=== PATIENT | male | born 1990 | race Caucasian/White ===

== ENCOUNTER 2016-12-29 12:36 | Emergency (ER) | payer OTHER ==
[~2016-12-29] VITALS: Ht 180.3 cm; Wt 98.8 kg
[~2016-12-29 12:36] MED LIST: ABILIFY10 MG PO; ABILIFY15 MG PO; AMBIEN CR12.5 MG PO; AMBIEN5 MG PO; ATARAX,VISTARIL50 MG PO; Atarax,Vistaril PO; BRINTELLIX10 MG PO; DESYREL100 MG PO; DEXTROAMP-AMPHE20 MG PO; Desyrel PO; FLEXERIL10 MG PO; KLONOPIN0.5 M1; KLONOPIN0.5 M1 PO; LAMICTAL100 MG PO; LEXAPRO10 MG PO; LUNESTA3 MG PO; MOBIC15 MG PO; MOTRIN800 MG PO; NAPROSYN500 MG PO; RISPERDAL1 MG PO; SEROQUEL100 MG PO; SEROQUEL50 MG PO; WELLBUTRIN XL300 MG PO; XANAX2 MG PO
[2016-12-29] MEDS ORDERED: INDOCIN50 MG PO (13:21)
[2016-12-29] MEDS ORDERED: PEN-VEE K,VEET500 MG PO (13:21)
[2016-12-29 13:32] VITALS: BP 135/80
== END 2016-12-29 13:32 | disposition home or self-care (01) ==
LOC: EME 12:36
DX: K08.89 Other specified disorders of teeth and supporting structures (principal); R22.0 Localized swelling, mass and lump, head; R51 Headache; F17.200 Nicotine dependence, unspecified, uncomplicated
CPT/HCPCS: 99281; 99284; J1885

== ENCOUNTER 2017-01-12 23:58 | Emergency (ER) | payer OTHER ==
[~2017-01-12] VITALS: Ht 177.8 cm; Wt 96.8 kg
[~2017-01-12 23:58] MED LIST changes: +INDOCIN50 MG PO; +PEN-VEE K,VEET500 MG PO
[2017-01-13 00:34] LABS: HEMATOCRIT 42.6 % (38.0-50.0); MCH 30.2 PG (29.0-34.0); MCHC 33.8 G/DL (30.0-36.0); MCV 89.3 FL (86-99); MEAN PLAT.VOLUME 9.5 uM^3 (9.0-12.4); PLATELET COUNT 223 K/uL (156-360); RBC DIS.WIDTH-CV 13.3 % (11.8-14.6); RBC DIS.WIDTH-SD 44.2 % (39-53); RED BLOOD COUNT 4.77 M/uL (4.00-5.50); WHITE BLOOD COUNT 11.8 K/uL (4.1-10.2)
[2017-01-13] MEDS ORDERED: AUGMENTIN875 MG PO (00:37)
[2017-01-13 00:44] LABS: CHLORIDE 105 mEq/L (99-109); POTASSIUM 3.9 mEq/L (3.7-5.4); SODIUM 141 mEq/L (136-147)
[2017-01-13 00:45] LABS: GLUCOSE 102 mg/dL (70-99)
[2017-01-13 00:47] LABS: ANION GAP 11 MEQ/L (2-14)
[2017-01-13 00:49] LABS: GFR ESTIMATE (CALCULATED) > 59 mL/min/
[2017-01-13 00:50] LABS: UREA NITROGEN (BUN) 16 mg/dL (9-23)
[2017-01-13 01:02] LABS: TROP-I INTERPRETATION NEGATIVE; TROPONIN-I < 0.01 ng/mL (0.0-0.30)
[2017-01-13 01:34] VITALS: BP 108/72
== END 2017-01-13 01:40 | disposition home or self-care (01) ==
LOC: EME 23:58
PROC: 3E0T3BZ Introduction of Anesthetic Agent into Peripheral Nerves and Plexi, Percutaneous Approach (ICD-10-PCS; principal; 2017-01-13)
DX: K04.7 Periapical abscess without sinus (principal); K05.10 Chronic gingivitis, plaque induced; R07.89 Other chest pain; R51 Headache; M54.2 Cervicalgia; G43.909 Migraine, unspecified, not intractable, without status migrainosus; F17.200 Nicotine dependence, unspecified, uncomplicated; M26.622 Arthralgia of left temporomandibular joint
CPT/HCPCS: 71020; 80048; 84484; 85027; 93005; 99281; 99283

== ENCOUNTER 2017-06-01 10:22 | Emergency (ER) | payer OTHER ==
[~2017-06-01] VITALS: Ht 180.3 cm; Wt 96.1 kg
[~2017-06-01 10:22] MED LIST changes: +AUGMENTIN875 MG PO
[2017-06-01 12:21] LABS: HEMATOCRIT 44.6 % (38.0-50.0); MCHC 34.1 G/DL (30.0-36.0); MEAN PLAT.VOLUME 9.8 uM^3 (9.0-12.4); PLATELET COUNT 215 K/uL (156-360); RBC DIS.WIDTH-CV 13.2 % (11.8-14.6); RBC DIS.WIDTH-SD 44.5 % (39-53); WHITE BLOOD COUNT 9.2 K/uL (4.1-10.2)
[2017-06-01 12:34] LABS: CHLORIDE 103 mEq/L (99-109); POTASSIUM 4.2 mEq/L (3.7-5.4); SODIUM 141 mEq/L (136-147)
[2017-06-01 12:36] LABS: GLUCOSE 79 mg/dL (70-99)
[2017-06-01 12:37] LABS: ANION GAP 8 MEQ/L (2-14)
[2017-06-01 12:40] LABS: GFR ESTIMATE (CALCULATED) > 59 mL/min/
[2017-06-01 12:41] LABS: UREA NITROGEN (BUN) 9 mg/dL (9-23)
[2017-06-01 14:33] VITALS: BP 129/77
== END 2017-06-01 17:50 | disposition left against medical advice (07) ==
LOC: EME 10:22
PROVIDERS: Physician Assistant
DX: R10.9 Unspecified abdominal pain (principal); Z53.21 Procedure and treatment not carried out due to patient leaving prior to being seen by health care provider
CPT/HCPCS: 71020; 80048; 85027

== ENCOUNTER 2017-11-23 18:28 | Emergency (ER) | payer OTHER ==
[~2017-11-23] VITALS: Ht 180.3 cm; Wt 82.0 kg
[2017-11-23 19:17] LABS: HEMATOCRIT 43.9 % (38.0-50.0); MCH 31.1 PG (29.0-34.0); MCHC 34.2 G/DL (30.0-36.0); MCV 91.1 FL (86-99); PLATELET COUNT 225 K/uL (156-360); RBC DIS.WIDTH-CV 13.4 % (11.8-14.6); RBC DIS.WIDTH-SD 45.2 % (39-53); RED BLOOD COUNT 4.82 M/uL (4.00-5.50)
[2017-11-23 19:43] LABS: CHLORIDE 102 mEq/L (99-109); SODIUM 140 mEq/L (136-147)
[2017-11-23 19:45] LABS: GLUCOSE 88 mg/dL (70-99)
[2017-11-23 19:46] LABS: TROP-I INTERPRETATION NEGATIVE; TROPONIN-I < 0.01 ng/mL (0.0-0.30)
[2017-11-23 19:49] LABS: CREATININE 0.8 mg/dL (0.6-1.3); GFR ESTIMATE (CALCULATED) > 59 mL/min/ (58.99-99999)
[2017-11-23 19:50] LABS: UREA NITROGEN (BUN) 7 mg/dL (9-23)
[2017-11-23 23:00] VITALS: BP 128/76
== END 2017-11-23 23:00 | disposition left against medical advice (07) ==
LOC: EME 18:28
DX: R07.9 Chest pain, unspecified (principal); M79.601 Pain in right arm; R51 Headache; Z53.21 Procedure and treatment not carried out due to patient leaving prior to being seen by health care provider
CPT/HCPCS: 71046; 80048; 84484; 85027; 93005